=== PATIENT | male | born 1970 | race Caucasian/White ===

== ENCOUNTER → 2020-03-15 13:14 | Outpatient (BNVA) | payer BC, SELFPAY | PROVIDERS: Family Provider Family Medicine; PCP Family Medicine; Visit Provider Nurse Practitioner Family | DX: J02.9 Acute pharyngitis, unspecified (principal); H65.193 Other acute nonsuppurative otitis media, bilateral | CPT/HCPCS: 87071; 87880 ==

== ENCOUNTER 2021-05-10 10:13 | Emergency (ER) | payer BC, SELFPAY ==
[2021-05-10 10:44] VITALS: BP 171/125; PULSE 83; RESP 16; TEMP 37; O2SAT 97; BMI 33.2
[2021-05-10] MEDS: dexamethasone 10 mg/mL INJ IVP (10:55)
[2021-05-10] MEDS: orphenadrine 30 mg/mL Inj 2 mL 60 MG IVP (10:55)
[2021-05-10] MEDS: ketorolac 30 mg/mL INJ IVP (10:55)
--- NOTE | 2021-05-10 11:31 | W.ED.BACK ---
HPI - Back Pain/Injury General: Chief Complaint: Back Pain/Injury Stated Complaint: BACK INJURY/LOWER BACK PAIN Time Seen by Provider: 05/10/21 10:16 History of Present Illness: HPI Narrative: 50-year-old male presents with low back pain. He was doing some heavy labor around his home pulling up some carpet had an sudden tearing back pain when he stood up. He is able to walk unassisted he denies any loss of bowel control or urinary retention. He has no pain radiating into his lower extremities. No previous history of injury to his back. No previous surgeries no known disc disease or stenosis. He denies any radicular leg pain. MD elicited complaint: back pain Onset (ago): hour(s) Timing: constant Severity: moderate Quality: aching Location: lumbar spine Radiation: none Exacerbating factors: movement, sitting upright and walking Relieving factors: supine Context: while lifting Associated symptoms: Deny abdominal pain, arthralgias, chills, change in bowel habits, difficulty walking, dysuria, fatigue, fecal incontinence, fever(s), hematuria, myalgias, nausea, numbness, syncope, tingling/numbness/burning, urinary frequency, urinary urgency, vomiting or weakness Review of Systems Const: Denies: fever(s), chills or fatigue ENMT: Denies: throat pain, ear or mastoid pain, nasal discharge or nasal congestion Card: Denies: syncope Resp: Denies: dyspnea, productive cough or non-productive cough GI: Denies: abdominal pain, nausea, vomiting, fecal incontinence or change in bowel habits : Denies: dysuria, urinary urgency or hematuria Skin/Breast: Denies: rash or pruritus Neuro: Denies: difficulty walking PFSH ED PFSH: Social History Smoking and tobacco status: never smoked Alcohol intake: never Physical Exam Const: COMMON NORMALS: no acute distress GENERAL APPEARANCE: cooperative and comfortable ORIENTATION/CONSCIOUSNESS: Yes awake, Yes oriented to person, Yes oriented to place and Yes oriented to time HENMT: COMMON NORMALS: normocephalic, atraumatic and hearing grossly normal bilaterally HEAD & SCALP: normocephalic and atraumatic Neck/C-Spine: COMMON NORMALS: no JVD Resp: COMMON NORMALS: normal respiratory effort, No retractions, No use of accessory muscles and clear to auscultation bilaterally AUSCULTATION: clear to auscultation bilaterally Cardio: COMMON NORMALS: no JVD, regular rate, regular rhythm and No murmurs present (Cardio) RATE: regular rate RHYTHM: regular rhythm GI: COMMON NORMALS: Soft to palpation and No hepatosplenomegaly present AUSCULTATION: Yes normoactive bowel sounds PALPATION: Yes Soft to palpation, No Tenderness to palpation present (GI), No Guarding due to palpation present (GI) and Yes No hepatosplenomegaly present Extremity: COMMON NORMALS: normal to inspection, capillary refill normal, no clubbing, cyanosis or edema, no calf tenderness and no pedal edema Neuro: SENSORIUM/ORIENTATION: Yes oriented to person, Yes oriented to place and Yes oriented to time OTHER: D10 reflexes +2/4 patellar tendon sensation lower extremities normal dorsum plantar flexion 5 of 5 straight leg raising is negative Skin: COMMON NORMALS: no rashes or lesions noted GENERAL SKIN EXAM: no rashes or lesions noted Course Vital Signs: Vital signs: Vital Signs Temperature 98.6 F 05/10/21 10:44 Pulse Rate 74 05/10/21 12:07 Respiratory Rate 17 05/10/21 12:07 Blood Pressure 164/75 05/10/21 12:07 Pulse Oximetry 98 05/10/21 12:07 MDM - Back Pain/Injury MDM Narrative: Medical decision making narrative: Improved with medications given. Will discharge patient on prednisone taper tizanidine diclofenac occasionally use hydrocodone at night and follow-up with his primary care doctor not improving or worsens recheck. Reviewed warning signs of cauda equina syndrome with the patient. Discharge Plan Discharge Patient Disposition: Home Clinical Impression: Strain of lumbar region Condition: Stable Prescriptions: New hydrocodone-acetaminophen 5-325 mg tablet 1 tab PO Q6H PRN (Reason: pain) Qty: 10 RF: 0 diclofenac sodium 75 mg tablet,delayed release (DR/EC) 75 mg PO Q12H PRN (Reason: pain) Qty: 20 RF: 0 tizanidine 4 mg capsule 4 mg PO Q6H PRN (Reason: muscle spasticity) Qty: 20 RF: 0 prednisone 20 mg tablet 20 mg PO BID 7 Days Qty: 15 RF: 0 No Action omeprazole magnesium [Prilosec OTC] 20 mg tablet,delayed release (DR/EC) 20 mg PO DAILY RF: 0 fluticasone propionate [Flonase Allergy Relief] 50 mcg/actuation spray,suspension 1 spray INTRANASAL DAILY Qty: 9.9 RF: 0 prednisone 20 mg tablet 40 mg PO DAILY 5 Days Qty: 10 RF: 0 cephalexin 500 mg capsule 500 mg PO Q12H 10 Days Qty: 20 RF: 0 Discharge Orders: Discharge ED (Routine); Ordered 05/10/21 Ordered By: Nima Jules Referrals: Villa Arguelles MD [Primary Care Provider] - Patient Instructions: Opioid Safety Stand Alone Forms: Work/School Release Coding Level of Care Code ED Steward/Stewardess Third Class for Adeel Everett
[2021-05-10 12:07] VITALS: BP 164/75; PULSE 74; RESP 17; O2SAT 98
== END 2021-05-10 12:05 | disposition home or self-care (01) ==
PROVIDERS: Emergency Provider Family Medicine; PCP Family Medicine
DX: S39.012A Strain of muscle, fascia and tendon of lower back, initial encounter (principal); X50.9XXA Other and unspecified overexertion or strenuous movements or postures, initial encounter
CPT/HCPCS: 96374; 96375; 99283; J1100; J1885; J2360